=== PATIENT | female | born 1950 | race Caucasian/White ===

== ENCOUNTER → 2016-12-07 | Outpatient (CLI) | payer MEDICARE | LOC: GMAJ 17:14 | PROVIDERS: ATTEND Family Medicine | DX: N39.0 Urinary tract infection, site not specified (principal); I10 Essential (primary) hypertension ==

== ENCOUNTER → 2017-01-03 | Outpatient (CLI) | payer MEDICARE | END | disposition home or self-care (01) | LOC: GMAJ 15:43 | PROVIDERS: ATTEND Family Medicine | DX: N39.0 Urinary tract infection, site not specified (principal) ==

== ENCOUNTER → 2017-02-22 | Outpatient (CLI) | payer MEDICARE | END | disposition home or self-care (01) | LOC: YCFC.O 14:14 | PROVIDERS: ATTEND Nurse Practitioner Family | DX: Z79.891 Long term (current) use of opiate analgesic (principal) ==

== ENCOUNTER 2017-03-19 21:06 | Emergency (ER) | payer MEDICARE ==
[2017-03-19] MEDS ORDERED: predniSONE 20 MG TAB PO ONE (21:25)
[2017-03-19] MEDS ORDERED: methylPREDNISolone SODIUM SUC 125 MG/2 ML VIAL IM ONE (21:25)
[2017-03-19] MEDS ORDERED: CETIRIZINE HCL 10 MG TAB PO ONE (21:26)
[2017-03-19] MEDS ORDERED: MONTELUKAST SODIUM 10 MG TAB ONE (21:34)
[2017-03-19 22:44] VITALS: O2SAT 98
--- NOTE | 2017-03-19 22:45 | ED.PDOC ---
History of Present Illness - General Chief Complaint: Skin/Abrasion/Tear Stated Complaint: skin rash and lips swelling Time Seen by Provider: 03/19/17 21:13 Source: patient Exam Limitations: no limitations - History of Present Illness Initial Comments: The patient is a 66-year-old female presenting to the emergency room secondary to swelling of the lips and diffuse hives starting this morning. The patient was placed on prednisone approximately 5 days ago on a prednisone taper for a COPD exacerbation. She has no oral lesions. She is having no difficulty with breathing and her lungs are actually clear right now. No chest pain. No wheezing. No hoarseness of voice. The hives are truly diffuse over the face chest back arms legs but not on the palms or soles. The lesions are pruritic. There are no blisters. There are no ulcers. No vision changes. This looks like urticaria or hives. No other recent medication changes. She has had one episode of urticaria many years ago. She does not remember what the reaction was 2. She has been on the steroids for more than 5 days now.the patient reports that aside from the itching she feels just fine. Timing/Duration: 24 hours Severity: moderate Improving Factors: nothing Worsening Factors: nothing Associated Symptoms: denies symptoms Allergies/Adverse Reactions: Allergies Sulfa Antibiotics Allergy (Verified 03/19/17 21:35) Home Medications: Ambulatory Orders Aspirin [Aspirin Adult Low Dose] 81 mg PO DAILY 08/22/15 Benazepril HCl 10 mg PO DAILY 08/22/15 Gemfibrozil 600 mg PO BID 08/22/15 Pravastatin Sodium 40 mg PO DAILY 08/22/15 Terazosin HCl 2 mg PO BEDTIME 08/22/15 Zolpidem Tartrate [Ambien] 10 mg PO BEDTIME 08/22/15 Duloxetine HCl 03/19/17 Gabapentin 03/19/17 Glipizide/Metformin HCl 5-500 mg 03/19/17 HYDROcodone 5MG/APAP 325MG 03/19/17 Methocarbamol 750 mg PO Q8HR 03/19/17 Montelukast Sodium [Singulair] 10 mg PO DAILY #30 tab 03/19/17 Review of Systems - Review of Systems Constitutional: States: no symptoms reported EENTM: States: no symptoms reported Respiratory: States: no symptoms reported Cardiology: States: no symptoms reported Gastrointestinal/Abdominal: States: no symptoms reported Genitourinary: States: no symptoms reported Musculoskeletal: States: no symptoms reported Skin: States: see HPI Neurological: States: no symptoms reported Endocrine: States: no symptoms reported All other Systems: No Change from Baseline Past Medical History (General) - Patient Medical History Hx Stroke: No Hx Asthma: No Hx of COPD: Yes Hx Cardiac Disorders: No Hx Congestive Heart Failure: No Hx Hypertension: Yes Hx Diabetes: Yes Hx MRSA: No - Vaccination History Hx Tetanus, Diphtheria Vaccination: Yes Hx Influenza Vaccination: Yes Hx Pneumococcal Vaccination: Yes Immunizations Up to Date: Yes - Social History Hx Tobacco Use: Yes Years Tobacco Use: 25 Cigarettes Packs Per Day: 1 Hx Chewing Tobacco Use: No Hx Alcohol Use: No Hx Substance Use: No Hx Substance Use Treatment: No Hx Depression: No Hx Physical Abuse: No Hx Emotional Abuse: No Hx Suspected Abuse: No - Female History Patient is a Female of Child Bearing Age (10 -59 yrs old): No Family Medical History - Family History Mother Family History: Unknown Living Status: Hx Family Cancer: Yes - Lung Physical Exam - Physical Exam General Appearance: Alert, Comfortable, No apparent distress Eye Exam: bilateral normal Ears, Nose, Throat: hearing grossly normal, normal pharynx, other - nares are boggy with clear rhinorrhea Neck: non-tender, full range of motion, supple, normal inspection Respiratory: chest non-tender, lungs clear, normal breath sounds, no respiratory distress, no accessory muscle use Cardiovascular/Chest: normal peripheral pulses, regular rate, rhythm, no edema Peripheral Pulses: radial,right: 2+, radial,left: 2+, dorsalis pedis,right: 2+, dorsalis pedis,left: 2+ Gastrointestinal/Abdominal: non tender, soft Rectal Exam: deferred Back Exam: normal inspection, no CVA tenderness Extremity: normal range of motion, non-tender, normal inspection, no pedal edema , normal capillary refill Neurologic: alert, normal mood/affect, oriented x 3 Skin Exam: rash - urticaria C history of present illness Comments: Vital Signs - 24 hr 03/19/17 03/19/17 21:06 22:00 Temperature 98 F 98 F Pulse Rate [ 99 H 78 pulse ox] Respiratory 16 18 Rate Blood Pressure 204/92 137/88 [left upper arm ] O2 Sat by Pulse 95 98 Oximetry Progress - Progress Progress: 03/19/17 22:46 the patient is a 66-year-old female presenting with urticaria while towards the end of a steroid taper. The patient is having no respiratory symptoms or any other symptoms other than hives with itching and some swollen lips. The patient received a larger dose of oral prednisone and a dose of Solu- Medrol along with a dose of Zyrtec and Singulair. The patient needs to complete her steroid taper and I'm going to place her on Singulair for the next 2 weeks. She needs to follow-up with Dr. Limon on Tuesday and should consider obtaining an EpiPen. The reaction is a significant one given that she was still on a steroid taper. She needs to go through her house and find anything that she might be newly exposed to and set it aside for the next few weeks. She also needs to take Zyrtec daily. ER warnings were given for any recurrence or worsening. Symptoms have improved with a cocktail given here today. Departure - Departure Clinical Impression: Urticaria Disposition: Discharge to Home or Self Care Condition: Fair Departure Forms: ED Discharge - Pt. Copy, Patient Portal Self Enrollment Instructions: DI for Hives Diet: diabetic diet Activity: increase activity as tolerated Referrals: Watson Limon MD [Primary Care Provider] - 1-2 Weeks Prescriptions: Montelukast Sodium [Singulair] 10 mg PO DAILY #30 tab Home Medications: Ambulatory Orders Aspirin [Aspirin Adult Low Dose] 81 mg PO DAILY 08/22/15 Benazepril HCl 10 mg PO DAILY 08/22/15 Gemfibrozil 600 mg PO BID 08/22/15 Pravastatin Sodium 40 mg PO DAILY 08/22/15 Terazosin HCl 2 mg PO BEDTIME 08/22/15 Zolpidem Tartrate [Ambien] 10 mg PO BEDTIME 08/22/15 Duloxetine HCl 03/19/17 Gabapentin 03/19/17 Glipizide/Metformin HCl 5-500 mg 03/19/17 HYDROcodone 5MG/APAP 325MG 03/19/17 Methocarbamol 750 mg PO Q8HR 03/19/17 Montelukast Sodium [Singulair] 10 mg PO DAILY #30 tab 03/19/17 Additional Instructions: the patient is a 66-year-old female presenting with urticaria while towards the end of a steroid taper. The patient is having no respiratory symptoms or any other symptoms other than hives with itching and some swollen lips. The patient received a larger dose of oral prednisone and a dose of Solu- Medrol along with a dose of Zyrtec and Singulair. The patient needs to complete her steroid taper and I'm going to place her on Singulair for the next 2 weeks. She needs to follow-up with Dr. Limon on Tuesday and should consider obtaining an EpiPen. The reaction is a significant one given that she was still on a steroid taper. She needs to go through her house and find anything that she might be newly exposed to and set it aside for the next few weeks. She also needs to take Zyrtec daily. ER warnings were given for any recurrence or worsening. Symptoms have improved with a cocktail given here today. She also does need to follow her blood sugars given the steroid usage required.
[2017-03-19 23:04] VITALS: BP 122/68; TEMP 97
[2017-03-20] MEDS ORDERED: MONTELUKAST SODIUM 10 MG TAB PO ONE (21:26)
== END 2017-03-19 22:58 | disposition home or self-care (01) ==
LOC: ER 21:06
DX: L50.9 Urticaria, unspecified (principal); J44.9 Chronic obstructive pulmonary disease, unspecified; I10 Essential (primary) hypertension; E11.9 Type 2 diabetes mellitus without complications; F17.210 Nicotine dependence, cigarettes, uncomplicated; Z79.82 Long term (current) use of aspirin; Z79.899 Other long term (current) drug therapy; Z88.2 Allergy status to sulfonamides
CPT/HCPCS: J2930; J7512

== ENCOUNTER → 2017-03-22 | Outpatient (CLI) | payer MEDICARE | END | disposition home or self-care (01) | LOC: YCFC.O 14:04 | PROVIDERS: ATTEND Anesthesiology Pain Medicine | DX: Z79.891 Long term (current) use of opiate analgesic (principal) ==

== ENCOUNTER → 2017-04-19 | Outpatient (CLI) | payer MEDICARE | END | disposition home or self-care (01) | LOC: YCFC.O 13:51 | PROVIDERS: ATTEND Anesthesiology Pain Medicine | DX: Z79.891 Long term (current) use of opiate analgesic (principal) ==

== ENCOUNTER → 2017-05-03 | Outpatient (CLI) | payer MEDICARE | LOC: GMAJ 14:49 | PROVIDERS: ATTEND Family Medicine | DX: N39.0 Urinary tract infection, site not specified (principal) ==

== ENCOUNTER → 2017-05-19 | Outpatient (CLI) | payer MEDICARE | END | disposition home or self-care (01) | LOC: YCFC.O 11:04 | PROVIDERS: ATTEND Anesthesiology Pain Medicine | DX: Z79.891 Long term (current) use of opiate analgesic (principal) ==

== ENCOUNTER → 2017-07-12 | Outpatient (CLI) | payer MEDICARE | LOC: YCFC.O 13:01 | PROVIDERS: ATTEND Anesthesiology Pain Medicine | DX: Z79.891 Long term (current) use of opiate analgesic (principal) ==

== ENCOUNTER → 2017-08-11 | Outpatient (CLI) | payer MEDICARE | END | disposition home or self-care (01) | LOC: YCFC.O 13:48 | PROVIDERS: ATTEND Anesthesiology Pain Medicine | DX: Z79.891 Long term (current) use of opiate analgesic (principal) ==

== ENCOUNTER → 2017-08-18 | Outpatient (CLI) | payer MEDICARE ==
--- NOTE | 2017-08-19 08:57 | MAM ---
EXAM DESCRIPTION: 3D Screening BILATERAL CLINICAL HISTORY: 66 yearsFemaleSCREENING no complaints. No family history of breast cancer. Postmenopausal. No HRT. Prior benign right breast biopsy. COMPARISON: Baseline study at this facility. No prior reports available. TECHNIQUE: Bilateral CC and MLO projection full-field images, 3-D tomosynthesis digital mammographic technique. Also bilateral synthesized CC/ MLO full-field images. CAD not utilized. FINDINGS: The breast parenchymal density pattern is: Almost entirely fatty. Scattered areas of fibroglandular density. Heterogeneously dense breast tissue, which may obscure small masses. Extremely dense breast tissue, which lowers the sensitivity of mammography. No skin thickening or nipple retraction bilateral solitary microcalcifications. Axillary lymph nodes in the right breast. Skin mole on the upper right breast. Focal asymmetry in the upper outer quadrant of the anterior third of the right breast surrounded by extremely dense fibroglandular tissues of the same density. No microcalcifications. Approximately 4 cm from the nipple at the 1000 clock position. Intramammary lymph node or nodes in the left breast. No focal, stellate mass or density, , and no suspicious microcalcifications bilaterally. No focal asymmetry in the left breast. IMPRESSION: BI-RADS CATEGORY: 0 - INCOMPLETE- Need additional imaging evaluation. FOLLOW-UP: Recall for additional imaging: Targeted ultrasound of the region of interest in the upper outer quadrant of the anterior right breast.. Written communication concerning the IMPRESSION and Follow-up, will be mailed to the patient and referring health care provider. Imaging Electronically signed by: Arnoldo Matamoros MD 08/19/2017 8:55 AM CDT
== END | disposition home or self-care (01) ==
LOC: MAMMO 14:20
PROVIDERS: ATTEND Family Medicine
DX: Z12.31 Encounter for screening mammogram for malignant neoplasm of breast (principal)
CPT/HCPCS: 77063; G0202

== ENCOUNTER → 2017-09-06 | Outpatient (CLI) | payer MEDICARE | END | disposition home or self-care (01) | LOC: YCFC.O 13:23 | PROVIDERS: ATTEND Anesthesiology Pain Medicine | DX: Z79.891 Long term (current) use of opiate analgesic (principal) ==

== ENCOUNTER → 2017-10-04 | Outpatient (CLI) | payer MEDICARE | END | disposition home or self-care (01) | LOC: YCFC.O 13:05 | PROVIDERS: ATTEND Anesthesiology Pain Medicine | DX: Z79.891 Long term (current) use of opiate analgesic (principal) ==

== ENCOUNTER → 2017-10-13 | Outpatient (CLI) | payer MEDICARE ==
--- NOTE | 2017-10-14 08:47 | US ---
EXAM DESCRIPTION: Soft Tissue,Abdomen CLINICAL HISTORY: 67 years Female, OTHER INTRA ABDOMINAL AND PELVIC SWELLING COMPARISON: None. FINDINGS: Real-time sonographic images of the soft tissue in the area of palpable abnormality labeled right lateral abdomen performed. No focal cystic or solid mass seen on ultrasound imaging. No sonographic abnormality. IMPRESSION: No sonographic abnormality is seen in the area of interest labeled right lateral abdomen wall. 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
== END | disposition home or self-care (01) ==
LOC: US 14:17
PROVIDERS: ATTEND Physician Assistant
DX: R19.09 Other intra-abdominal and pelvic swelling, mass and lump (principal)

== ENCOUNTER → 2017-10-25 | Outpatient (CLI) | payer MEDICARE ==
--- NOTE | 2017-10-25 20:15 | MRI ---
EXAM DESCRIPTION: Cervical Spine CLINICAL HISTORY: CERVICAL DISC DISORDER COMPARISON: 06/15/2016 TECHNIQUE: Multiplanar multisequence MR imaging of the cervical spine including the administration of intravenous contrast. FINDINGS: Postoperative changes are again seen. There is again increased focal T2 signal in portions of the cervical cord. There is no new stenosis or definite new cord signal abnormality. T2 signal in the cervical cord appears mildly increased since the prior exam in some locations, but this could be artifactual. No prevertebral soft tissue swelling. No epidural hematoma. Metallic artifact again limits detail. There is no crowding of structures at the foramen magnum. At C3-4 there is moderate right and moderately severe left neuroforaminal narrowing. No other interval change. IMPRESSION: No definite acute change. Electronically signed by: Arnoldo Clements 10/25/2017 8:13 PM [facility]
--- NOTE | 2017-10-25 20:19 | CT ---
EXAM DESCRIPTION: Abdomen/Pelvis w/wo Contrast CLINICAL HISTORY: INTRA-ABDOMINAL MASS COMPARISON: TECHNIQUE: Contiguous axial images of the abdomen and pelvis were obtained after the administration of intravenous contrast followed by reconstruction images.This exam was performed according to our departmental dose-optimization program, which includes automated exposure control, adjustment of the mA and/or kV according to patient size and/or use of iterative reconstruction technique. FINDINGS: There are possible cysts of both kidneys. No obstruction of either renal collecting system. The liver, spleen, pancreas and kidneys are otherwise within normal limits. No renal or ureteral stones are seen. There is no hydronephrosis. The gallbladder is absent. Adrenal glands are within normal limits. Aorta is normal in caliber and tapering. No significant free fluid. No free air. No bowel obstruction. There is no stranding of the mesenteric fat. The appendix appears normal. No evidence of periappendiceal inflammation. IMPRESSION: No acute intra-abdominal abnormality Electronically signed by: Arnoldo Clements 10/25/2017 8:18 PM NUTRITION AIDE
== END | disposition home or self-care (01) ==
LOC: CT 12:40
PROVIDERS: ATTEND Psychiatry & Neurology Neurology
DX: R19.09 Other intra-abdominal and pelvic swelling, mass and lump (principal); M50.122 Cervical disc disorder at C5-C6 level with radiculopathy

== ENCOUNTER → 2017-11-01 | Outpatient (CLI) | payer MEDICARE | END | disposition home or self-care (01) | LOC: YCFC.O 16:13 | PROVIDERS: ATTEND Anesthesiology Pain Medicine | DX: Z79.891 Long term (current) use of opiate analgesic (principal) ==

== ENCOUNTER → 2018-03-23 | Outpatient (CLI) | payer MEDICARE ==
--- NOTE | 2018-03-24 12:50 | RAD ---
EXAM DESCRIPTION: Hand,Left 3 Views CLINICAL HISTORY: PAIN IN LEFT HAND COMPARISON: EXAM DESCRIPTION: Hand,Left 3 Views CLINICAL HISTORY: PAIN IN LEFT HAND COMPARISON: Previous study December 05, 2017 TECHNIQUE: AP, LATERAL, AND OBLIQUE FINDINGS: Three-view left hand shows no fracture or dislocation. There is no bone lesion. Degenerative narrowing of the DIP and PIP joints as noted. There is marked degenerative narrowing of the second metacarpal phalangeal joint. Advanced degenerative arthrosis of the lateral carpus is seen especially first carpal metacarpal joint. Collapsed or fragmented appearance of the trapezium. Irregularity of the distal scaphoid is noted. Compared to previous study, the findings appear stable. Previous exam suggested periarticular demineralization but this is not a prominent finding on the present study. There is no radiopaque foreign body. IMPRESSION: Degenerative changes as described. Electronically signed by: Mark Holley MD 03/24/2018 12:48 PM CDT
--- NOTE | 2018-03-24 12:51 | RAD ---
EXAM DESCRIPTION: Fingers,Left CLINICAL HISTORY: 67 years Female, PAIN IN LEFT LONG FINGER COMPARISON: None. TECHNIQUE: Left middle finger three views FINDINGS: Degenerative narrowing of the DIP and PIP joints is seen. Severe degenerative narrowing and spurring sclerosis and spurring is seen at the second metacarpal phalangeal joint. No fracture. No dislocation. No lytic lesion. IMPRESSION: Degenerative narrowing of the DIP and PIP joints of the middle finger. Electronically signed by: Mark Holley MD 03/24/2018 12:49 PM CDT
== END ==
LOC: RAD 09:12
PROVIDERS: ATTEND Orthopaedic Surgery
DX: M79.642 Pain in left hand (principal); M79.645 Pain in left finger(s)

== ENCOUNTER → 2018-03-31 | Outpatient (CLI) | payer MEDICARE | LOC: RESP 12:40 | PROVIDERS: ATTEND Orthopaedic Surgery | DX: Z01.818 Encounter for other preprocedural examination (principal) ==

== ENCOUNTER → 2018-08-14 | Outpatient (CLI) | payer MEDICARE | LOC: GMAJ 16:16 | PROVIDERS: ATTEND Family Medicine | DX: N39.0 Urinary tract infection, site not specified (principal) ==

== ENCOUNTER → 2018-09-14 | Outpatient (CLI) | payer MEDICARE ==
--- NOTE | 2018-09-14 16:21 | RAD ---
4 views right shoulder Indication: PAIN Comparison: None. Impression: A.C. and glenohumeral joint alignment normal without acute fracture or dislocation. Mild to moderate AC joint osteoarthritis. No advanced glenohumeral joint osteoarthritis. Electronically signed by: Dontae Loco MD 09/14/2018 4:20 PM CDT
== END ==
LOC: RAD 09:55
PROVIDERS: ATTEND Orthopaedic Surgery
DX: M19.011 Primary osteoarthritis, right shoulder (principal); M25.511 Pain in right shoulder

== ENCOUNTER → 2018-12-19 | Outpatient (CLI) | payer MEDICARE ==
--- NOTE | 2018-12-19 16:44 | CT ---
EXAM DESCRIPTION: Chest w/o Contrast CLINICAL HISTORY: 68 years, Female, TOBACCO ABUSE COMPARISON: None TECHNIQUE: Thin-section noncontrast axial CT images are obtained according to our protocol. Reconstructed MPR images are created and reviewed as well. FINDINGS: Lungs: No consolidating pulmonary infiltrate. Minimal patchy groundglass infiltrate in the upper lobes and superior segments of the lower lobes. No worrisome pulmonary mass or nodule. Few tiny subpleural areas of linear scarring and appear benign. Mediastinum: Lymph nodes are normal in size. Normal vascular contours. Heart size is normal with small pericardial effusion. Chest wall/axilla: No mass or adenopathy. Dense glandular breast tissue is seen in the left breast. Correlate with mammographic and sonographic findings Lower neck/supraclavicular: No mass or adenopathy. No thyroid nodule. Upper abdomen: Spleen is prominent. Otherwise unremarkable upper abdominal viscera. Coronal and sagittal reformatted images confirm the findings. Tiny partly calcified granuloma in the right upper lobe measures 4 mm (image 39, series 602). A few other tiny granulomas in the 1 to 2 mm size range are seen in the subpleural right upper lobe. Left lower lobe tiny granuloma measures 4 mm (axial image 71, series 4). Patchy areas of groundglass density in the dependent portions of the lungs and scattered throughout both upper and lower lobes could be mild pulmonary edema or minimal infectious infiltrate. IMPRESSION: Small nodules in the lungs measuring 1 to 4 mm. Follow-up as per recommendations below. Mild bilateral patchy groundglass infiltrates. Small pericardial effusion. 2017 Fleischner Society Recommendations for Multiple Solid Lung Nodules Follow-Up base on size (average of long- and short-axis diameters). Use most suspicious nodule for followup. Nodule Size <6 mm Low-Risk Patient: No routine follow-up Nodule Size <6 mm High-Risk Patient: Optional CT at 12 months This exam was performed according to our departmental dose-optimization program, which includes automated exposure control, adjustment of the mA and/or kV according to patient size and/or use of iterative reconstruction technique. Total DLP equals 439.06 mGycm. Electronically signed by: Mark Holley MD 12/19/2018 4:43 PM [employer] PROFESSIONAL
== END ==
LOC: CT 14:00
PROVIDERS: ATTEND Family Medicine
DX: F17.218 Nicotine dependence, cigarettes, with other nicotine-induced disorders (principal); R91.8 Other nonspecific abnormal finding of lung field; I31.3 Pericardial effusion (noninflammatory)

== ENCOUNTER → 2019-01-19 | Outpatient (CLI) | payer MEDICARE ==
--- NOTE | 2019-01-19 17:06 | RAD ---
EXAM DESCRIPTION: Chest,2 Views CLINICAL HISTORY: 68 years Female, RIB PAIN COMPARISON: CT chest dated December 19, 2018. TECHNIQUE: PA and lateral radiographs of the chest were obtained. FINDINGS: Trachea is midline.The cardiomediastinal silhouette is normal in size. The pulmonary vasculature is within normal limits.The lungs are clear with no acute consolidation.No evidence of pleural effusions.No evidence of pneumothorax. IMPRESSION: No acute cardiopulmonary process. Electronically signed by: Demarcus Bustillos MD 01/19/2019 5:03 PM [facility]
--- NOTE | 2019-01-19 17:15 | RAD ---
EXAM DESCRIPTION: Ribs,Left 3 Views CLINICAL HISTORY: 68 years Female, RIB PAIN COMPARISON: CT chest dated December 19, 2018. FINDINGS: 3 views of the left hemithorax demonstrate no gross evidence of rib fractures. However subtle rib fractures cannot be excluded on the radiographs. Multilevel degenerative changes of the lumbar spine noted with the levoscoliosis of the lower lumbar spine. IMPRESSION: 1. No gross evidence of rib fractures, however subtle rib fractures cannot be completely excluded on the radiographs. Electronically signed by: Demarcus Bustillos MD 01/19/2019 5:12 PM [facility]
== END ==
LOC: RAD 16:12
PROVIDERS: ATTEND Nurse Practitioner Family
DX: S23.41XA Sprain of ribs, initial encounter (principal)

== ENCOUNTER → 2019-04-02 | Outpatient (CLI) | payer MEDICARE ==
--- NOTE | 2019-04-02 16:10 | RAD ---
EXAM DESCRIPTION: Pelvis CLINICAL HISTORY: 68 years Female, M25.561, M25.551, M79.641 COMPARISON: None. FINDINGS: Single AP view of the pelvis shows postoperative changes without acute fracture or malalignment. Mild degenerative changes of both hips. More advanced degenerative changes at several levels in the lower lumbar spine including degenerative disc disease at L3-4 and L4-5. Sacroiliac joints are fairly well-maintained. IMPRESSION: Advanced degenerative changes at several levels in the lower lumbar spine with less advanced degenerative changes of both hips. Electronically signed by: Brayden Abrams MD 04/02/2019 4:08 PM CDT
--- NOTE | 2019-04-02 16:11 | RAD ---
EXAM DESCRIPTION: Knee,Right Complete CLINICAL HISTORY: 68 years Female, M25.561, M25.551, M79.641 COMPARISON: None. FINDINGS: Four views of the right knee show postoperative changes related to previous right knee arthroplasty. No loosening or other hardware complication. Probable small right knee joint effusion. No acute fracture or malalignment. IMPRESSION: Postoperative changes in the right knee without loosening or other hardware complication. Small right knee joint effusion, otherwise unremarkable exam. Electronically signed by: Brayden Abrams MD 04/02/2019 4:09 PM CDT
--- NOTE | 2019-04-02 16:12 | RAD ---
EXAM DESCRIPTION: Hand,Right 3 Views CLINICAL HISTORY: 68 years Female, M25.561, M25.551, M79.641 COMPARISON: None. FINDINGS: Three views of the right hand show postoperative changes related to previous second MCP arthroplasty. Lucency surrounding the metacarpal and phalangeal components suggestive of loosening. No acute fracture or malalignment. Moderately advanced degenerative changes in the lateral carpal row. Less advanced joint space narrowing involving several interphalangeal joints. IMPRESSION: Postoperative changes at the second MCP joint with probable hardware loosening. Moderately advanced degenerative changes in the lateral carpal row with less advanced degenerative changes elsewhere in the right hand. Electronically signed by: Brayden Abrams MD 04/02/2019 4:10 PM CDT
== END ==
LOC: RAD 09:49
PROVIDERS: ATTEND Orthopaedic Surgery
DX: M16.0 Bilateral primary osteoarthritis of hip (principal); M51.36 Other intervertebral disc degeneration, lumbar region; M25.561 Pain in right knee; M25.461 Effusion, right knee; M19.041 Primary osteoarthritis, right hand; Z98.890 Other specified postprocedural states

== ENCOUNTER → 2019-06-27 | Outpatient (CLI) | payer MEDICARE ==
--- NOTE | 2019-06-27 16:31 | CT ---
EXAM DESCRIPTION: Abdomen w/Contrast: Computed Tomography. CLINICAL HISTORY: GENERALIZED ABDOMINAL PAIN COMPARISON: CT scan of abdomen and pelvis with and without contrast 10/25/2017. TECHNIQUE: Spiral-axial scans at 5 x 5 mm intervals, abdomen through the upper pelvis, after nonionic IV contrast. No oral contrast. Coronal and sagittal 2.0 mm reconstructions. No Delayed scans. No adverse reactions. Total Exam DLP: 828.47 mGy-cm. This exam was performed according to our departmental CT dose-optimization program which includes automated exposure control, adjustment of the mA and/or kV according to patient size and/or use of iterative reconstruction technique; to reduce radiation dose to as low as reasonably achievable (ALARA). FINDINGS: Lung bases and pleura: Scarring in the parenchyma and pleura abutting the left lower lobe. Coronary artery calcifications and stents. No change from the prior study. Liver, Stomach, Spleen, Adrenal Glands: Long axis right hepatic lobe 23.4 cm. Stable. Stable calcification in the dome of the liver. No focal lesions. Stable minimal intrahepatic biliary dilatation. Stomach slightly distended with air-fluid level; other solid organs are negative. Pancreas, Gallbladder, Ducts: Surgical clips in the gallbladder fossa but no fluid. Dilated common bile duct. Pancreatic duct is visualized. Pancreas negative.. Kidneys: Bilateral cortical thinning. Lobulated renal capsule. Cysts in the upper pole renal pelvis right kidney stable. Stable cyst in the lower anterior pole left kidney. No hydronephrosis. Minimal pararenal stranding is physiologic and stable.. Mesentery: No inflammatory changes, no free air or free fluid. Aorta: Tortuous with atherosclerotic calcifications. Marked narrowing of the origin of the right common iliac artery stable. Poststenotic dilation stable. Small Bowel: Diffuse fluid with no significant distention or air-fluid levels. Terminal Ileum/Cecum: Appendix contains multiple radiodense structures proximally where it originates from the cecum which were not seen on the prior study. The appendix is not distended and there are no inflammatory changes. Terminal ileum is unremarkable. Colon: Diffuse fecal matter with redundancy of the descending colon. Also minimal redundancy of the transverse colon which courses in the anterior abdomen inferior to the umbilicus. No complications. Spine: Multiple levels of spondylosis in the lumbar spine, particularly L1-L4 5 similar appearance on the prior study with lumbar levoscoliosis. Abdominal Wall/Back Soft Tissues: Unremarkable. IMPRESSION: 1. Multiple small calcifications in the proximal appendix most likely appendicoliths not present on the prior study. But appendix not distended and no surrounding inflammatory changes. 2. Fluid throughout the small bowel with no significant distention most likely negative but if patient having abdominal pain, consider viral enteritis. No small bowel obstruction. Diffuse colonic constipation. 3. Hepatomegaly stable. Postcholecystectomy with no complications. Multiple bilateral renal cysts with bilateral cortical thinning most likely related to age. Stable since the prior study. 4. 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 Electronically signed by: Arnoldo Matamoros MD 06/27/2019 4:29 PM CDT
== END ==
LOC: CT 14:50
PROVIDERS: ATTEND Nurse Practitioner Family
DX: K59.00 Constipation, unspecified (principal); K38.1 Appendicular concretions; R16.0 Hepatomegaly, not elsewhere classified; N28.1 Cyst of kidney, acquired; Z90.49 Acquired absence of other specified parts of digestive tract; I77.1 Stricture of artery

== ENCOUNTER → 2019-09-06 | Outpatient (CLI) | payer MEDICARE ==
--- NOTE | 2019-09-06 16:38 | US ---
EXAM DESCRIPTION: Venous,Lower Extremity RT: ULTRASOUND. CLINICAL HISTORY: Localized edema. Right lower extremity. COMPARISON: None Available. TECHNIQUE: Lane-scale and doppler sonographic evaluation of the deep venous system of the right lower extremity. FINDINGS: Doppler evaluation shows normal color flow and normal phasicity and augmentation of the right common femoral vein, femoral vein, popliteal vein, greater saphenous vein, junction with the CFV. Also normal color flow and normal phasicity and augmentation of the peroneal, and posterior tibial vein. The right lower extremity deep veins were completely compressible; normal occlusion with transducer pressure. Lane-scale survey showed no echogenic thrombus within these veins. IMPRESSION: 1. Duplex ultrasound evaluation of the right lower extremity deep venous system showing no evidence of thrombosis. Electronically signed by: Arnoldo Matamoros MD 09/06/2019 4:35 PM CDT
== END ==
LOC: US 14:52
PROVIDERS: ATTEND Family Medicine
DX: R60.0 Localized edema (principal)

== ENCOUNTER → 2019-09-27 | Outpatient (CLI) | payer MEDICARE ==
--- NOTE | 2019-09-27 16:17 | CT ---
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 At an independent workstation 3-D reconstructions of the abdominal aorta, iliac systems bilaterally, and lower extremity arteries bilaterally was obtained. This exam was performed according to our departmental dose optimization program which includes use of automated exposure control, adjustment of the mA and/or kV according to patient size and/or use of iterative reconstruction technique. Findings: Review of conventional CT imaging was obtained. Visualized liver is unremarkable. Prior cholecystectomy. Spleen, pancreas and adrenal glands are unremarkable. Bilateral renal cysts. No lymphadenopathy by CT size criteria. Urinary bladder is unremarkable. No bowel obstruction. Small hiatal hernia. Postsurgical changes in the lumbar spine. Right knee arthroplasty. Calcified atherosclerotic plaque in the aorta and its branch vessels. No abdominal aortic aneurysm or dissection. The celiac and SMA origins are intact. 2 right renal arteries are patent without significant stenosis. Single left renal artery is patent without significant stenosis. 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 The right external iliac artery is patent without significant stenosis. Approximately 70% stenosis of the left common iliac artery. The left external iliac artery is patent without significant stenosis. Right lower extremity: The common femoral artery is patent without significant stenosis. The profunda femoris artery is patent without significant stenosis. The superficial femoral artery is patent without significant stenosis. The popliteal artery is patent without significant stenosis. The anterior tibial artery is patent to the foot. The peroneal artery is patent to the ankle. The posterior tibial artery is patent to the foot. Left lower extremity: The common femoral artery is patent without significant stenosis. The profunda femoris artery is patent without significant stenosis. Approximately 70% stenosis of the mid superficial femoral artery. The popliteal artery is patent without significant stenosis. The anterior tibial artery is patent to the foot. The peroneal artery is patent to the ankle. The posterior tibial artery is patent to the foot. Impression: 1. 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 2. Approximately 70% stenosis of the left common iliac artery. 3. Approximately 70% stenosis of the mid left superficial femoral artery. 4. Three-vessel runoff to each foot. Electronically signed by: Abdirashid Billings MD 09/27/2019 4:16 PM CDT
== END ==
LOC: CT 13:30
PROVIDERS: ATTEND Family Medicine
DX: I70.238 Atherosclerosis of native arteries of right leg with ulceration of other part of lower leg (principal); R60.0 Localized edema

== ENCOUNTER → 2019-10-12 | Outpatient (CLI) | payer MEDICARE ==
--- NOTE | 2019-10-13 16:08 | MRI ---
EXAM DESCRIPTION: Lumbar Spine w/o Contrast : Magnetic Resonance Imaging. CLINICAL HISTORY: DEGENERATIVE DISC DISEASE COMPARISON: Noncontrast MRI scan lumbar spine January 2016. TECHNIQUE: Multiplanar, multiple standard sequences, non contrast MRI, lumbar spine. FINDINGS: L5-S1: The disc is well visualized on axial T2 series 501, image 3. Minimal desiccation and minimal disc space loss. Posterior midline tiny bulge. Mild bilateral facet hypertrophic arthrosis. Moderate canal narrowing. Bilateral moderate foraminal narrowing more on the right. Stable since the prior study. L4-L5: Severe disc space loss. Anterior disc remnant bulge with endplate ridging and moderate spondylosis. Posterior disc remnant bulge with 2 mm retrolisthesis bulges encroaching on the thecal sac and the descending right L5 nerve with right subarticular recess stenosis, stable since the prior study. Moderate to severe right foraminal stenosis and moderate left foraminal stenosis. This has progressed since the prior study. Right posterior partial laminectomy and decompression stable since the prior study. L3-L4: Desiccated disc and advanced spondylosis to the right of midline which is progressed since the prior study, with disc spur complex encroaching on the right foramen and the right L3 nerve. 2 mm grade 1 retrolisthesis. Posterior disc remnant and endplates bulging into the canal. Bilateral effacement of the subarticular recesses and the L4 nerves. No canal stenosis. Mild to moderate left foraminal narrowing. Bilateral hypertrophic facet arthrosis and posterior ligament thickening partially resected by posterior decompression, since the prior study. L2-L3: Disc desiccation and moderate disc space loss with 2 mm grade 1 anterolisthesis. Anterior disc bulge and endplate ridging. Left side disc osteophyte complex bulge into the foramen which is nearly stenotic. No change since the prior study. Posterior decompression since the prior study with partially resected hypertrophic facets and ligaments with no canal stenosis. Right foramen remains patent. L1-L2: Midline and left side advanced spondylosis with disc osteophyte complex encroaching on the left foramen and abutting the exiting left L1 nerve. Progressive since the prior study with progressive endplate edema. Posterior disc osteophyte complex abutting the thecal sac and the bilateral subarticular recesses. Posterior disc bulge with endplate spurs abutting the thecal sac and hypertrophic left facet and ligament narrowing the left canal. Posterior flavum ligaments have been resected with partial laminectomy and increased canal caliber. Right foramen is patent. T12-L1: Minimal disc desiccation with no bulging. Bilateral hypertrophic facets and thickened ligaments with mild canal narrowing. Mild bilateral foraminal narrowing stable. Conus terminates at this level. Left convex L3 S1 curvature and right convex T12 L3 curvature. Paravertebral soft tissues postsurgical changes paraspinal muscle atrophy aorta 2.5 cm diameter at the L2-L3 level and 3 cm cyst left kidney.. Distal cord normal signal and caliber. Otherwise normal marrow signal in the remaining vertebral bodies and the posterior elements. Vertebral bodies are not compressed at any level. IMPRESSION: 1. Progressive spondylosis at multiple levels since the prior study with progressive scoliosis. Multiple levels of disc space narrowing and disc desiccation and bulging. Posterior partial laminectomy and decompression since the prior study at L4-5, L3-4, and L2-3. 2. Severe disc space loss has progressed at L4-L5 posterior disc osteophyte complex bulge encroaching on the thecal sac and right subarticular recess stenosis and descending right L5 nerve. This stenosis is stable since the prior study. Moderate to severe right foraminal stenosis and moderate left foraminal stenosis has progressed since the prior study. 3. Stable left side disc osteophyte complex bulge at L2-3 with left foramen nearly stenotic. No canal stenosis secondary to decompression. 4. Disc osteophyte complex and spondylosis of the right of midline at L3-4 has progressed since the prior study with encroachment on the right foramen and right L3 nerve. Grade 1 retrolisthesis. Bilateral effacement of the subarticular recesses abutting the bilateral L4 nerves has progressed since the prior study. No canal stenosis. Posterior decompression. 5. Progressive spondylosis on the left at L1-L2 with disc osteophyte complex encroaching on the left foramen and abutting the exiting left L1 nerve. Increasing marrow edema in both vertebral bodies since the prior study. No compression deformity. Partial posterior decompression with no canal stenosis. Right foramen is stable. Electronically signed by: Arnoldo Matamoros MD 10/13/2019 4:06 PM [facility]
== END ==
LOC: MRI 14:02
PROVIDERS: ATTEND Anesthesiology Pain Medicine
DX: M51.36 Other intervertebral disc degeneration, lumbar region (principal); M47.896 Other spondylosis, lumbar region; M48.061 Spinal stenosis, lumbar region without neurogenic claudication; M43.16 Spondylolisthesis, lumbar region

== ENCOUNTER → 2020-09-16 | Outpatient (CLI) | payer MEDICARE ==
--- NOTE | 2020-09-17 15:09 | MRI ---
EXAM DESCRIPTION: Brain w/wo Contrast: Magnetic Resonance Imaging. CLINICAL HISTORY: 70 years Female HEARING LOSS COMPARISON: MRI scan of the brain without contrast June 2018. TECHNIQUE: Multiplanar, high-field MRI, multiple conventional sequences, without and with Dotarem gadolinium IV contrast, 1 mL per 5 kg body weight. No adverse reactions. Multiple axial diffusion sequences. FINDINGS: Bilateral multifocal follicle hyperintense FLAIR and T2-weighted signal predominantly in the .Subcortical white matter of the bilateral frontal lobes, more on the right than left. Another single focus parasagittal vertex of the right parietal lobe. Also in the lower right frontal lobe near the right sylvian fissure. Normal contrast enhancement. No hemorrhage, no cerebral edema, no mass-effect. Normal signal in the bilateral basal ganglia. Normal contrast enhancement. Normal signal in the brainstem and cerebellar hemispheres. Normal contrast enhancement. Concordance of the diffusion and non-diffusion sequences with no evidence of acute or subacute infarction. Cortical sulci, ventricles, and other CSF spaces, and the subdural spaces are physiologic for patient's age. No effacement or displacement. No midline shift. No extra-axial hemorrhage. Normal contrast enhancement. Normal flow signal void in the major vessels of the tribe [place], and the venous sinuses. IACs are symmetric bilaterally. Minimal fluid signal in the bilateral mastoid air cells. No mass effect in the bilateral Cerebellopontine angles. Normal contrast enhancement. Pituitary gland occupies most of the sella. Normal contrast enhancement. Base of the cerebellar tonsils is just above the foramen magnum. Diffuse mucoperiosteal thickening in the paranasal sinuses. No air-fluid levels. The bony calvarium is intact. IMPRESSION: 1. Bilateral multiple foci of white matter disease involving the frontal and parietal lobes bilaterally and primarily on the right. Not associated with hemorrhage mass effect, edema, or extra-axial hemorrhage. No contrast enhancement. Number and size of lesions have increased since the prior study 2 years ago. Most likely related to cerebral microvascular disease and/or aging. Demyelinating process, vasculitis, or migraines less likely. No diffusion restriction. Consider neurologic consult. 2. Normal noncontrast MRI diffusion study with no evidence of significant ischemia or acute or subacute infarction. 3. Minimal bilateral mastoid inflammatory changes chronic paranasal sinus inflammatory changes are stable since the prior study. Electronically signed by: Arnoldo Matamoros MD 09/17/2020 3:08 PM CDT
== END ==
LOC: MRI 13:00
PROVIDERS: ATTEND Otolaryngology
DX: Z01.812 Encounter for preprocedural laboratory examination (principal); H90.3 Sensorineural hearing loss, bilateral; H81.399 Other peripheral vertigo, unspecified ear; H93.8X1 Other specified disorders of right ear; R26.81 Unsteadiness on feet